=== PATIENT | female | born 1950 | race Caucasian/White ===

== ENCOUNTER 2018-12-15 06:23 | Day surgery (SDC) | payer MEDICARE, OTHER ==
--- NOTE | 2018-12-14 14:19 | PREOPHP ---
DATE OF ADMISSION: 12/15/2018 HISTORY OF PRESENT ILLNESS: This 68-year-old patient is admitted for elective cataract surgery of th e right eye. The patient has noted decreased vision for the past year's time and she was referred by research physiologist for cataract surgery evaluation. The patient denies prior history of eye disease or inj ury. The patient has had a history of psychiatric illness and the congenital dislocated hip. CURRENT MEDICATIONS: Include: 1. Atorvastatin. 2. Benztropine. 3. Digoxin. 4. Invega. 5. Mirtazapine. 6. Gabapentin. 7. Prolixin. ALLERGIES: THERE ARE NO KNOWN ALLERGIES. PHYSICAL EXAMINATION: The visual acuity with best correction is 20/100 in the right eye and 20/70 in the left eye. Slit lamp examination reveals minimal nuclear sclerotic cataract and evidence of cent ral posterior subcapsular cataract, greater in the right eye than the left eye. Applanation tonometr y is 16 mmHg. Examination of the retina is within normal limits. DIAGNOSIS: Posterior subcapsular cataract, right eye. PLAN: Cataract extraction with lens implant, right eye. The risks and alternatives to the surgery h ave been discussed with the patient as well as the hope for improvement of visual acuity leading to g reater ability to perform activities of daily living. The patient understands this and agrees to pro ceed with surgery. Dictated By: ZACH WILLAMS/MICHAEL Conf#: [id number] DID#: [id number]
[~2018-12-15] VITALS: Ht 162.6 cm; Wt 54.0 kg
[2018-12-15] MEDS ORDERED: MOXIFLOXACIN 0.5% 3 ML OPH OPER SCH (07:00)
[2018-12-15] MEDS ORDERED: SOD CHLORIDE 0.9% 1,000 ML IV SCH (07:00)
[2018-12-15] MEDS ORDERED: CYCLOPENTOLATE/PHENYLEPH 2 ML OPH OPER SCH (07:00)
[2018-12-15] MEDS ORDERED: DICLOFENAC 0.1% 2.5 ML OPH OPER SCH (07:00)
[2018-12-15] MEDS ORDERED: TROPICAMIDE 1% 15 ML OPH OPER SCH (07:00)
[2018-12-15 07:09] VITALS: Ht 162.6 cm; Wt 54.0 kg
[2018-12-15 07:22] VITALS: BP 123/73; PULSE 89; RESP 16
[2018-12-15] MEDS ORDERED: BENZ1TAB7 PO (07:51)
[2018-12-15] MEDS ORDERED: DIGO125T93 PO (07:51)
[2018-12-15] MEDS ORDERED: MIRT7.5T8 PO (07:52)
[2018-12-15] MEDS ORDERED: ATOR10TA65 PO (07:52)
[2018-12-15] MEDS ORDERED: GABA100C14 PO (07:52)
--- NOTE | 2018-12-15 07:52 | PREAC ---
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 not on B-Marck Reported Medications Mirtazapine* (Mirtazapine*) 7.5 Mg Tablet, 7.5 MG PO HS, TAB 12/15/18 Atorvastatin Calcium (Atorvastatin Calcium) 10 Mg Tablet, 10 MG PO QHS, #30 TAB 12/15/18 Gabapentin* (Gabapentin*) 100 Mg Capsule, 100 MG PO TID, #90 CAP 12/15/18 Benztropine Mesylate* (Benztropine Mesylate*) 1 Mg Tablet, 1 MG PO TID, TAB 12/15/18 Digoxin* (Lanoxin*) 0.125 Mg Tablet, 0.125 MG PO DAILY, TAB 12/15/18 Current Medications Diclofenac Sodium (Voltaren 0.1%) 1 drop Q5 MIN X 3 OPER Last administered on 12/15/18at 07:12; Admin Dose 1 DROP; Start 12/15/18 at 07:00 Tropicamide (Mydriacyl 1%) 1 drop Q5 MIN X3 OPER Last administered on 12/15/18at 07:13; Admin Dose 1 DROP; Start 12/15/18 at 07:00 Moxifloxacin HCl (Vigamox) 1 drop Q5 MIN X 3 OPER Last administered on 12/15/18a t 07:12; Admin Dose 1 DROP; Start 12/15/18 at 07:00 Cyclopentolate/ Phenylephrine (Cyclomydril Oph 2 ml) 1 drop Q5 MIN X 3 OPER Last administered on 12/15/18at 07:12; Admin Dose 1 DROP; Start 12/15/18 at 07:00 Sodium Chloride 1,000 ml @ 25 mls/hr Q24H IV Last administered on 12/15/18at 07:14; Admin Dose 25 MLS/HR; Start 12/15/18 at 07:00 Meds reviewed: Yes Allergies Coded Allergies: No Known Drug Allergies (Verified Allergy, Unknown, 12/15/18) Allergies Reviewed: Yes Labs/Studies Labs Reviewed: Reviewed by anesthesiologist test: N/A Studies: ECG Pre-procedure Exam Last vitals Vital Signs Date Temp Pulse Resp B/P (MAP) Pulse Ox O2 O2 Flow FiO2 Time Delivery Rate 12/15/18 97.7 89 16 123/73 100 Room Air 07:22 (90) Airway: Adequate mouth opening, Adequate thyromental dist Mallampati: Mallampati II Teeth: Normal Lung: Normal Heart: Normal ASA Physical Status ASA physical status: 2 Emergency: None Planned Anesthetic General/MAC: MAC Planned Pain Management Parenteral pain med, Local by surgeon Pre-operative Attestations Prior to commencing anesthesia and surgery, the patient was re-evaluated, there was verification of: *The patient's identity *The results of appropriate recent lab work and preoperative vital signs *The above evaluation not changing prior to induction *Anesthetic plan, risk benefits, alternative and complications discussed with patient/family; questions answered; patient/family understands, accepts and wi shes to proceed. WENDY HOLMAN Dec 15, 2018 07:52
[2018-12-15] MEDS ORDERED: PROPOFOL 20 ML ONE (08:05)
[2018-12-15] MEDS ORDERED: FENTAnyl 50 MCG/ML VIAL ONE (08:05)
[2018-12-15] MEDS ORDERED: CARBACHOL 0.01% 1.5 ML OPH INJ ONE (08:11)
[2018-12-15] MEDS ORDERED: NA HYALURONATE/CHONDROITIN 0.5 ML SYG ONE (08:11)
[2018-12-15] MEDS ORDERED: TETRACAINE 0.5% 4 ML OPH ONE (08:11)
[2018-12-15] MEDS ORDERED: LIDOCAINE 4% (MPF) 5 ML INJ ONE (08:11)
[2018-12-15] MEDS ORDERED: DEXAMETHASONE 4 MG/ML 1 ML INJ ONE (08:11)
[2018-12-15] MEDS ORDERED: EPINEPHrine 1 MG INJ ONE (08:11)
[2018-12-15] MEDS ORDERED: GENTAMICIN 80 MG INJ ONE (08:11)
[2018-12-15] MEDS ORDERED: CEFAZOLIN 1 GM INJ ONE (08:11)
[2018-12-15] MEDS ORDERED: ONDANSETRON 4 MG INJ IV PRN (09:00)
[2018-12-15] MEDS ORDERED: FENTAnyl 50 MCG/ML VIAL IV PRN ×3 (09:00)
[2018-12-15] MEDS ORDERED: OXYCODONE/ACETAMINOPHEN (5/325) TAB PO PRN ×2 (09:00)
--- NOTE | 2018-12-15 09:14 | SIPON ---
Date/Time of Note Date/Time of Note DATE: 12/15/18 TIME: 09:13 Operative Report Preoperative Diagnosis posterior subcapsular cataract od Postoperative Diagnosis same Operation/Procedure Performed cataract extraction with lens implant od Surgeon zach trevino visitor services assistant none Anesthesia: MAC Estimated blood loss: none Transfusion Required none Specimen none Grafts/Implants posterior chamber lens implant Complications none ZACH TREVINO MD Dec 15, 2018 09:14
[2018-12-15 09:44] VITALS: BP 117/54; PULSE 67; RESP 14
--- NOTE | 2018-12-15 12:02 | PAC ---
Date/Time of Note Date/Time of Note DATE: 12/15/18 TIME: 12:02 Post-Anesthesia Notes Post-Anesthesia Note Last documented vital signs Vital Signs Date Temp Pulse Resp B/P (MAP) Pulse Ox O2 O2 Flow FiO2 Time Delivery Rate 12/15/18 99.4 09:49 12/15/18 89 16 123/73 100 Room Air 07:22 (90) Activity: WNL Respiratory function: WNL Cardiovascular function: WNL Mental status: Baseline Pain reasonably controlled: Yes Hydration appropriate: Yes Nausea/Vomiting absent: Yes WENDY HOLMAN Dec 15, 2018 12:02
--- NOTE | 2018-12-15 13:01 | OPR ---
DATE OF OPERATION: 12/15/2018 PREOPERATIVE DIAGNOSIS: Posterior subcapsular cataract, right eye. POSTOPERATIVE DIAGNOSIS: Posterior subcapsular cataract, right eye OPERATION PERFORMED: Cataract extraction with lens implant, right eye. SURGEON:Domingo Montiel MD ANESTHESIA: Ricardo Armijo CRNA. PROCEDURE: The patient was brought to the operating room and placed on the table with an IV in place and the patient attached to an bus monitor. Oxygen was given via face mask. After some intravenous sedation was administered, local anesthesia was given using Xylocaine 2% with epinephrine, mixed with Marcaine 0.5%. This was given in a lid block and retrobulbar injection. The patient was then prepped and draped in the usual sterile manner. A wire lid speculum was inserted between the lids of the right eye. A Superblade was used to enter the anterior chamber at the corneoscleral limbus at the 10:30 o'clock position. A separate incision was made using a 3.0-mm keratome which entered the corneoscleral junction at the 12 o'clock position. Through this 3-mm opening, an irrigating cystotome was introduced into the anterior chamber. The chamber was filled with Viscoat and an anterior capsulotomy was performed. Balanced salt solution was then used for hydrodissection of the lens. A phacoemulsification handpiece was then brought into the field and introduced into the anterior chamber. The lens nucleus was emulsified using a deep groove and cracking the nucleus into quadrants.It was noted during this initial portion of the cataract removal procedure that the pupil constricted and visibility became limited. It was therefore decided in order to safely remove the balance of the cataract that the pupillary iris needed to be retracted. Four silicone iris hooks were inserted through 4 paracentesis incisions in the peripheral cornea and used to retract the iris at the pupillary margin until an enlarged 7 mm aperture was visible. At this point removal of the cataract continued. Following this, each quadrant was aspirated and emulsified at the pupillary margin. After this was completed, the irrigation/aspiration handpiece was brought to the field, introduced into the posterior chamber, and the lens cortical material was removed. When this was completed, additional Viscoat was injected into the anterior and posterior chambers. The 3-mm opening had its internal lips enlarged, and then the posterior chamber intraocular lens measuring 17.5 diopters (Bausch and LoWhiteFence Model [id number]) was then injected into the posterior chamber using the lens injector system. The 4 iris hooks were then removed from the eye. After the leading haptic was introduced into the capsular bag and the lens optic was present in the center of the eye, the injector was removed and the trailing haptic was grasped with non-toothed forceps and introduced into the capsular fold superiorly. A Sinskey hook was then used to rotate the intraocular lens so that the lips were oriented in the horizontal meridian. One 10-0 nylon suture was placed across the wound. Prior to tying, the irrigation/aspiration handpiece was reintroduced into the anterior chamber to remove the Viscoat. Miochol was instilled to constrict the pupil, and then the 10-0 nylon suture was tied. The ends were cut short and then the knot was buried. Then, 0.5 mL of dexamethasone and 0.5 mL of Ancef were injected into the sub- [place] space in the inferior fornix. Ciloxan drops were then placed on the surface of the eye. The speculum was removed and a patch was applied. The patient then left the operating room in satisfactory condition. Dictated By: ZACH WILLAMS/MICHAEL Conf#: [id number] DID#: [id number] JOHN
== END 2018-12-15 10:50 | disposition home or self-care (01) ==
LOC: SDS 06:23
PROVIDERS: ATTEND Ophthalmology
DX: H25.11 Age-related nuclear cataract, right eye (principal)
CPT/HCPCS: 66984; J0171; J0690; J1100; J1580; J2405; J3010; J7030; V2632